=== PATIENT | female | born 1945 | race Caucasian/White ===

== ENCOUNTER 2019-10-17 22:34 | Inpatient (IN) ==
[2019-10-17 23:41] LABS: Basophils % 0.3 %; Eosinophils % 0.1 %; Hematocrit 36.5 % (35.3-44.9); Hemoglobin 11.5 g/dL (11.5-15.4); Immature Granulocytes % 0.8 % (0-4); Lymphocytes # 2.1 K/mcL (0.6-4.6); Lymphocytes % 25.9 %; Mean Corpuscular HGB Conc 31.5 g/dL (31.6-35.5); Mean Corpuscular Hemoglobin 27.8 pg (28.0-33.3); Mean Corpuscular Volume 88.4 fL (83.0-100.0); Mean Platelet Volume 10.9 fL (9.4-12.4); Monocytes # 0.7 K/mcL (0.0-1.3); Monocytes % 8.2 %; Neutrophils # 5.1 K/mcL (1.6-8.9); Platelet Count 186 K/mcL (140-400); Red Blood Count 4.13 M/mcL (3.82-4.97); Red Cell Distribution Width 14.6 % (11.5-14.5); Segmented Neutrophils % 64.7 %; White Blood Count 7.9 K/mcL (4.3-11.1)
[2019-10-17 23:51] LABS: Activated Partial Thrombo Time 30.4 Seconds (26.0-36.0); INR 1.1; Prothrombin Time 12.4 Seconds (9.4-12.1)
[2019-10-18 00:05] LABS: BUN/Creatinine Ratio 27 (6-26); Blood Urea Nitrogen 26 mg/dL (8-23); Calcium 9.7 mg/dL (8.6-10.3); Carbon Dioxide 18 mEq/L (23-29); Chloride 107 mEq/L (98-107); Glucose 250 mg/dL (70-105); Osmolality,Calculated 295 (280-300); Potassium 4.3 mEq/L (3.5-5.1); Sodium 136 mEq/L (136-145); Troponin I < 0.03 ng/mL (< 0.04); eGFR For African Americans > 60 (> 60); eGFR For Non-African Americans 57 (> 60)
[2019-10-18] MEDS ORDERED: cefTRIAXone 1,000 MG in Water for inj. (sterile) 10 ML IVP ONE (00:39)
[2019-10-18] MEDS ORDERED: Azithromycin 500 MG in 0.9 % Sodium Chloride 250 ML IVPB ONE (00:39)
[2019-10-18] MEDS ORDERED: Aspirin 81 MG TAB.CHEW PO ONE (01:03)
[2019-10-18] MEDS ORDERED: Naloxone 0.4 MG/ML INJ IVP PRN (02:36)
[2019-10-18 03:25] LABS: Basophils % 0.3 %; Eosinophils % 0.3 %; Hemoglobin 11.7 g/dL (11.5-15.4); Immature Granulocytes % 0.6 % (0-4); Lymphocytes # 3.8 K/mcL (0.6-4.6); Lymphocytes % 37.2 %; Mean Corpuscular HGB Conc 31.6 g/dL (31.6-35.5); Mean Corpuscular Volume 88.5 fL (83.0-100.0); Mean Platelet Volume 10.5 fL (9.4-12.4); Monocytes # 0.9 K/mcL (0.0-1.3); Monocytes % 8.3 %; Neutrophils # 5.5 K/mcL (1.6-8.9); Platelet Count 194 K/mcL (140-400); Red Blood Count 4.18 M/mcL (3.82-4.97); Red Cell Distribution Width 14.6 % (11.5-14.5); Segmented Neutrophils % 53.3 %; White Blood Count 10.3 K/mcL (4.3-11.1)
[2019-10-18] MEDS ORDERED: 0.9 % Sodium Chloride 250 ML IVC ONE (03:31)
[2019-10-18] MEDS ORDERED: D5% in Water 1,000 ML IVC PRN (03:42)
[2019-10-18] MEDS ORDERED: Dextrose Gel 15 GM/37.5 ML TUBE PO PRN ×2 (03:42)
[2019-10-18] MEDS ORDERED: *HR* Dextrose 50 % in Water (Vial) 50 ML VIAL IVP PRN (03:42)
[2019-10-18] MEDS ORDERED: Perflutren Lipid Microsphere 1.3 ML in 0.9 % Sodium Chloride 8.7 ML IVP ONE (03:43)
[2019-10-18 03:48] LABS: BUN/Creatinine Ratio 29 (6-26); Blood Urea Nitrogen 25 mg/dL (8-23); Calcium 9.7 mg/dL (8.6-10.3); Carbon Dioxide 20 mEq/L (23-29); Chloride 108 mEq/L (98-107); Glucose 119 mg/dL (70-105); Osmolality,Calculated 292 (280-300); Sodium 138 mEq/L (136-145); Troponin I < 0.03 ng/mL (< 0.04); eGFR For African Americans > 60 (> 60); eGFR For Non-African Americans > 60 (> 60)
[2019-10-18] MEDS: Insulin LISPRO 300 UNITS/3 ML VIAL SQ SCH ×4 (04:18→16:40)
[2019-10-18] MEDS: Insulin DETEMIR 100 UNIT/ML X5UNITS SQ SCH ×2 (04:41→21:31)
[2019-10-18] MEDS ORDERED: Regadenoson 0.4 MG/5 ML SYRINGE IVP ONE (07:39)
[2019-10-18] MEDS: Metoprolol XL (24 HR) Succ 50 MG TAB.ER.24H PO SCH (11:24)
[2019-10-18] MEDS: Aspirin Enteric Coated 81 MG Tablet PO SCH (11:24)
[2019-10-18] MEDS: Gabapentin 100 MG CAPSULE PO SCH (11:24)
[2019-10-18] MEDS: lisinopriL 20 MG TABLET PO SCH (11:24)
[2019-10-18] MEDS: BuPROPion XL (24 HR) 150 MG TABLET PO SCH (11:24)
[2019-10-18] MEDS: Ipratropium/Albuterol Neb 3 ML IH SCH ×2 (16:25→21:29)
[2019-10-18] MEDS: *HR* Heparin 5,000 UNIT/ML VIAL SQ SCH (16:51)
[2019-10-19 01:47] LABS: Hemoglobin 11.4 g/dL (11.5-15.4); Mean Corpuscular HGB Conc 31.7 g/dL (31.6-35.5); Mean Corpuscular Hemoglobin 27.9 pg (28.0-33.3); Mean Corpuscular Volume 88.2 fL (83.0-100.0); Mean Platelet Volume 10.5 fL (9.4-12.4); Platelet Count 192 K/mcL (140-400); Red Blood Count 4.08 M/mcL (3.82-4.97); Red Cell Distribution Width 14.9 % (11.5-14.5)
[2019-10-19 02:01] LABS: BUN/Creatinine Ratio 25 (6-26); Blood Urea Nitrogen 25 mg/dL (8-23); Calcium 9.1 mg/dL (8.6-10.3); Carbon Dioxide 18 mEq/L (23-29); Chloride 109 mEq/L (98-107); Glucose 182 mg/dL (70-105); Osmolality,Calculated 293 (280-300); Potassium 3.9 mEq/L (3.5-5.1); Sodium 137 mEq/L (136-145); eGFR For African Americans > 60 (> 60); eGFR For Non-African Americans 54 (> 60)
[2019-10-19] MEDS: Azithromycin 500 MG in 0.9 % Sodium Chloride 250 ML IVPB SCH (02:42)
[2019-10-19] MEDS: Ipratropium/Albuterol Neb 3 ML IH SCH ×4 (03:16→21:39)
[2019-10-19] MEDS: *HR* Heparin 5,000 UNIT/ML VIAL SQ SCH ×2 (06:13→17:09)
[2019-10-19] MEDS ORDERED: 0.9 % Sodium Chloride 1,000 ML IVC SCH (07:15)
[2019-10-19] MEDS: Insulin LISPRO 300 UNITS/3 ML VIAL SQ SCH ×3 (07:39→17:09)
[2019-10-19] MEDS: Metoprolol XL (24 HR) Succ 50 MG TAB.ER.24H PO SCH (07:44)
[2019-10-19] MEDS: lisinopriL 20 MG TABLET PO SCH (07:45)
[2019-10-19] MEDS: Gabapentin 100 MG CAPSULE PO SCH (07:45)
[2019-10-19] MEDS: Aspirin Enteric Coated 81 MG Tablet PO SCH (07:45)
[2019-10-19] MEDS: BuPROPion XL (24 HR) 150 MG TABLET PO SCH (07:45)
[2019-10-19] MEDS: cefTRIAXone 1,000 MG in Water for inj. (sterile) 10 ML IVP SCH (07:46)
[2019-10-19] MEDS: predniSONE 20 MG TABLET PO SCH (12:48)
[2019-10-19] MEDS: Insulin DETEMIR 100 UNIT/ML X5UNITS SQ SCH (20:20)
[2019-10-19] MEDS: Menthol 9.1 MG LOZENGE PO PRN (22:53)
[2019-10-20] MEDS: Azithromycin 500 MG in 0.9 % Sodium Chloride 250 ML IVPB SCH (01:06)
[2019-10-20] MEDS: Ipratropium/Albuterol Neb 3 ML IH SCH ×2 (03:18→10:32)
[2019-10-20] MEDS: *HR* Heparin 5,000 UNIT/ML VIAL SQ SCH (05:02)
[2019-10-20 05:10] LABS: Basophils % 0.3 %; Eosinophils # 0.1 K/mcL (0.0-0.6); Eosinophils % 1.2 %; Hemoglobin 10.9 g/dL (11.5-15.4); Immature Granulocytes % 0.9 % (0-4); Lymphocytes # 2.4 K/mcL (0.6-4.6); Lymphocytes % 36.1 %; Mean Corpuscular HGB Conc 31.1 g/dL (31.6-35.5); Mean Corpuscular Hemoglobin 27.1 pg (28.0-33.3); Mean Corpuscular Volume 87.1 fL (83.0-100.0); Mean Platelet Volume 10.3 fL (9.4-12.4); Monocytes # 0.5 K/mcL (0.0-1.3); Monocytes % 7.7 %; Neutrophils # 3.6 K/mcL (1.6-8.9); Platelet Count 157 K/mcL (140-400); Red Blood Count 4.02 M/mcL (3.82-4.97); Red Cell Distribution Width 14.4 % (11.5-14.5); Segmented Neutrophils % 53.8 %; White Blood Count 6.8 K/mcL (4.3-11.1)
[2019-10-20 05:21] LABS: BUN/Creatinine Ratio 28 (6-26); Blood Urea Nitrogen 19 mg/dL (8-23); Calcium 9.1 mg/dL (8.6-10.3); Carbon Dioxide 20 mEq/L (23-29); Chloride 110 mEq/L (98-107); Glucose 161 mg/dL (70-105); Osmolality,Calculated 294 (280-300); Potassium 3.7 mEq/L (3.5-5.1); Sodium 139 mEq/L (136-145); eGFR For African Americans > 60 (> 60); eGFR For Non-African Americans > 60 (> 60)
[2019-10-20 06:53] VITALS: BP 157/79
[2019-10-20] MEDS: Insulin LISPRO 300 UNITS/3 ML VIAL SQ SCH (08:12)
[2019-10-20] MEDS: Aspirin Enteric Coated 81 MG Tablet PO SCH (08:13)
[2019-10-20] MEDS: lisinopriL 20 MG TABLET PO SCH (08:13)
[2019-10-20] MEDS: BuPROPion XL (24 HR) 150 MG TABLET PO SCH (08:13)
[2019-10-20] MEDS: Metoprolol XL (24 HR) Succ 50 MG TAB.ER.24H PO SCH (08:13)
[2019-10-20] MEDS: predniSONE 20 MG TABLET PO SCH (08:13)
[2019-10-20] MEDS: Gabapentin 100 MG CAPSULE PO SCH (08:13)
[2019-10-20] MEDS: cefTRIAXone 1,000 MG in Water for inj. (sterile) 10 ML IVP SCH (08:14)
[2019-10-20] MEDS: Menthol 9.1 MG LOZENGE PO PRN (08:25)
== END 2019-10-20 10:50 | disposition home or self-care (01) | DRG 194 ==
LOC: 3BNU 22:34 → EMEROOARM 22:34 → 3BNU 10-18 01:54
PROVIDERS: ADMIT Student in an Organized Health Care Education/Training Program; ATTEND Nurse Practitioner